=== PATIENT | male | born 1995 | race Caucasian/White ===

== ENCOUNTER 2016-04-17 15:14 | Emergency (ER) | payer OTHER ==
[2016-04-17] MEDS ORDERED: IBUPROFEN 800 MG TABLET ONE (16:29)
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
== END 2016-04-17 18:08 | disposition home or self-care (01) ==
LOC: ED 15:14
DX: S16.1XXA Strain of muscle, fascia and tendon at neck level, initial encounter (principal); V43.62XA Car passenger injured in collision with other type car in traffic accident, initial encounter; Y92.410 Unspecified street and highway as the place of occurrence of the external cause